=== PATIENT | male | born 1995 | race Two or more races ===

== ENCOUNTER 2023-09-22 17:45 | Emergency (ER) | payer OTHER ==
[~2023-09-22] VITALS: Ht 177.8 cm; Wt 88.9 kg
[2023-09-22 20:44] LABS: HEMATOCRIT 42.1 % (39.0-48.0); HEMOGLOBIN 14.2 g/dL (13-16.00); MEAN CELL VOLUME 85.4 fL (80.0-100.00); MEAN CORPUSCULAR HEMOGLOBIN 28.8 pg (27.00-32.0); MEAN CORPUSCULAR HGB CONC 33.7 g/dl (32.0-36.0); PLATELET COUNT 263 K/uL (150-450); RED BLOOD COUNT 4.93 M/uL (4.00-6.00); RED CELL DISTRIBUTION WIDTH 12.8 % (11.5-14.5)
[2023-09-22 21:03] LABS: INR 1.11; PARTIAL THROMBOPLASTIN TIME 25.9 SECONDS (22.0-34.0); PROTHROMBIN TIME 11.6 SECONDS (9.0-11.5)
[2023-09-22 21:08] LABS: CALCIUM 9.5 mg/dL (8.5-10.1); CREATININE SERUM 0.81 mg/dL (0.70-1.30); GFR 111.89; POTASSIUM 4.44 mEq/L (3.5-5.1)
[2023-09-22 21:37] LABS: URINE APPEARANCE Clear; URINE BILIRRUBIN Negative (NEGATIVE); URINE BLOOD Large; URINE COLOR Yellow; URINE GLUCOSE Negative (NEGATIVE); URINE LEUKOCYTE Negative; URINE NITRATE Negative; URINE PROTEIN Negative (NEGATIVE); URINE UROBILINOGEN 0.2 E.U./dl
[2023-09-22 21:42] LABS: URINE BACTERIA 3.7 uL (0.0-1933); URINE EPITHELIAL CELLS 0.6 uL (0.0-38.8); URINE RBC 33.3 uL (0.0-20.8); URINE WBC 3.5 uL (0.0-23.2)
[2023-09-22] MEDS ORDERED: TAMS0.4C PO (22:16)
[2023-09-22] MEDS ORDERED: KETO10TA2 PO (22:16)
== END 2023-09-22 22:25 | disposition home or self-care (01) ==
LOC: ER 17:46
PROVIDERS: General Practice
DX: N20.1 Calculus of ureter (principal); R10.31 Right lower quadrant pain